=== PATIENT | female | born 1980 | race Caucasian/White ===

== ENCOUNTER → 2023-05-11 | Outpatient (CLI) | payer BC ==
[~2023-05-11] MED LIST: MOTRIN 600600 MG/TAB PO; PERCOCET 325 MG1 TA2 PO; PRENATAL VITAMI1 TA5 PO; SLOW FE160 MG
== END ==
LOC: CANSCHCLI → MC.RAD 07:02
DX: Z12.31 Encounter for screening mammogram for malignant neoplasm of breast (principal)